=== PATIENT | female | born 1990 | race American Indian/Alaskan Native ===

== ENCOUNTER 2021-09-04 15:37 | Emergency (ER) | payer BC ==
[~2021-09-04] VITALS: Ht 157.5 cm; Wt 58.1 kg
[2021-09-04] MEDS ORDERED: BUPR75 PO (15:52)
[2021-09-04] MEDS ORDERED: LEVSOD150 PO (15:52)
[2021-09-04] MEDS ORDERED: YAZ 28 TABLET1 EAC1 PO (15:52)
[2021-09-04 16:54] LABS: Influenza A, PCR NEGATIVE (NEGATIVE); Influenza B, PCR NEGATIVE (NEGATIVE); Resp Syncytial Virus, PCR NEGATIVE (NEGATIVE); SARS-Cov-2 (COVID-19) PCR, MMC NEGATIVE (NEGATIVE)
== END 2021-09-04 18:27 | disposition home or self-care (01) ==
LOC: ER 15:37
PROVIDERS: Emergency Medicine
DX: J06.9 Acute upper respiratory infection, unspecified (principal); Z20.822 Contact with and (suspected) exposure to COVID-19
CPT/HCPCS: 0241U; J7120